=== PATIENT | female | born 1955 | race Caucasian/White ===

== ENCOUNTER 2018-07-28 08:18 | Observation (INO) ==
[2018-07-28] MEDS ORDERED: 0.9 % Sodium Chloride 1,000 ML ONE (08:36)
[2018-07-28] MEDS ORDERED: 0.9 % Sodium Chloride 1,000 ML IVC ONE ×2 (08:56→09:51)
[2018-07-28 09:06] LABS: Basophils # 0.1 K/mcL (0.0-0.2); Basophils % 0.4 %; Eosinophils # 0.1 K/mcL (0.0-0.6); Eosinophils % 0.6 %; Hematocrit 40.6 % (35.3-44.9); Hemoglobin 13.7 g/dL (11.5-15.4); Immature Granulocytes % 0.3 % (0-4); Lymphocytes # 1.6 K/mcL (0.6-4.6); Lymphocytes % 13.9 %; Mean Corpuscular HGB Conc 33.7 g/dL (31.6-35.5); Mean Corpuscular Hemoglobin 29.7 pg (28.0-33.3); Mean Corpuscular Volume 87.9 fL (83.0-100.0); Mean Platelet Volume 10.5 fL (9.4-12.4); Monocytes # 0.5 K/mcL (0.0-1.3); Monocytes % 4.3 %; Neutrophils # 9.2 K/mcL (1.6-8.9); Platelet Count 333 K/mcL (140-400); Red Blood Count 4.62 M/mcL (3.82-4.97); Red Cell Distribution Width 12.8 % (11.5-14.5); Segmented Neutrophils % 80.5 %
[2018-07-28] MEDS ORDERED: Isovue-370 500 ML INFUS..BTL IV ONE (09:12)
--- NOTE | 2018-07-28 09:14 | Emergency Department Note ---
Disposition Clinical Impression: Lower gastrointestinal hemorrhage Disposition: Admitted As Inpatient Condition: Fair Referrals: Jasmeet Garcia DO [Primary Care Provider] - Dwayne Gutierrez DO [Family Provider] - Forms: ED Satisfaction Letter Time of Disposition: 10:30 GI Bleed HPI - General Chief complaint: ED GI Bleed Stated complaint: "GI bleed" Time Seen by Provider: 07/28/18 08:23 Source: patient Limitations: no limitations Nursing Notes Reviewed: Yes Vital Signs Reviewed: Yes - History of Present Illness HPI Narrative: 63-year-old female recent colonoscopy last week by Dr. meneses, presents to the emergency department with concern for bright red blood per rectum. Patient states she has had 3 instances where she has defecated significants amount of blood in the toilet. Patient also reporting left lower quadrant abdominal pain as well. Reports no nausea or vomiting, fever. Reports she had a colonoscopy because of a screening. Reported that polyps were removed. Bright red blood. No urinary frequency or urgency. - Related Data Home Medications Medication Instructions Recorded Confirmed Lisinopril [Zestril] 10 mg PO DAILY 07/28/18 07/28/18 Polyethylene Glycol 3350 [MiraLAX 17 gm PO DAILY 07/28/18 07/28/18 bowel prep] amLODIPine [Norvasc] 5 mg PO DAILY 07/28/18 07/28/18 Allergies Allergy/AdvReac Type Severity Reaction Status Date / Time No Known Allergies Allergy Verified 07/22/18 07:29 All systems ED: reviewed and negative except as stated. Review of Systems: As Per HPI Constitutional: Denies: fever Cardiovascular: Denies: chest pain Respiratory: Denies: cough, dyspnea Gastrointestinal: Reports: abdominal pain, hematochezia. Denies: nausea, vomiting Genitourinary: Denies: urgency, dysuria, frequency Musculoskeletal: Denies: back pain Integumentary: Denies: rash Neurological: Denies: weakness Endocrine: Denies: fatigue Past Medical History - Past Medical History Medical history: Reports: hyperlipidemia, hypertension Surgical history: Reports: appendectomy Psychiatric history: Reports: no psych history - Social History Smoking Status: Never smoker Alcohol use: Reports: none Drug use: Reports: none Physical Exam - General Limitations: no limitations General appearance: alert, in no apparent distress - Head Head exam: normocephalic - Eye Eye exam: Present: EOMI - ENT ENT exam: normal oropharynx - Neck Neck exam: Present: trachea midline - Chest Chest inspection: Present: symmetric chest wall rise - Respiratory Respiratory exam: Present: normal lung sounds bilaterally. Absent: respiratory distress - Cardiovascular Cardiovascular exam: Present: normal rhythm, tachycardia, normal heart sounds - Abdominal Exam Abdominal exam: Present: soft, tenderness Abdominal tenderness: Present: LLQ - Rectal Exam Nurse Assistant present during exam: Yes Rectal exam: Present: bloody stool. Absent: hemorrhoids, mass - Extremities Exam Extremities exam: Present: normal capillary refill - Back Exam Back exam: Present: full ROM - Neurological Exam Neurological exam: Present: alert, oriented X3 - Psychiatric Psychiatric exam: Present: normal affect, normal mood - Skin Skin exam: Present: warm, dry, intact, normal color Course Vital Signs Temperature 98.0 F 07/28/18 08:19 Pulse Rate 123 07/28/18 08:19 Respiratory Rate 18 07/28/18 08:19 Blood Pressure 197/96 07/28/18 08:19 O2 Sat by Pulse Oximetry 97 07/28/18 08:19 Temperature 98.0 F 07/28/18 08:29 Pulse Rate 99 07/28/18 10:20 Respiratory Rate 16 07/28/18 10:20 Blood Pressure 155/85 07/28/18 10:20 O2 Sat by Pulse Oximetry 98 07/28/18 10:20 Oxygen Delivery Oxygen Delivery Room Air GI Bleed - [facility] Narrative Medical decision making narrative: 63-year-old female comes in with lower GI bleeding. Tachycardic with heart rate in the 120s. On physical exam, no evidence of active severe hemorrhage, but patient does have bright red blood per rectum. Hemoglobin was normal at 13.7. Patient was given 1 L of fluids here in the emergency department and her tachycardia improved to 107 bpm. The also given another bolus. We will obtain CT scan of the abdomen and pelvis as patient had left lower quadrant abdominal pain, in the setting of recent colonoscopy, there was concern for possible bowel perforation. This revealed blood in the rectum. Type and screen were obtained. Patient is not require blood at this time as hemoglobin is normal and she is asymptomatic. Patient made to the hospitalist for lower GI bleed.. Patient agrees with plan. Abdomen/Pelvis CT 07/28/18 09:12 IMPRESSION: 1. Findings compatible with lower GI bleed with hyperdensity within the rectum likely reflecting blood products. Could consider further evaluation with CTA, interventional radiology and/or nuclear medicine to better localize. 2. Otherwise, no CT evidence for acute intra-abdominal process, and no CT findings to suggest etiology of patient's left lower quadrant abdominal pain. D/ / Mac Donato / Mac Donato Interpreting Provider: Mac Donato Vital Signs Temperature 98.0 F 07/28/18 08:19 Pulse Rate 123 07/28/18 08:19 Respiratory Rate 18 07/28/18 08:19 Blood Pressure 197/96 07/28/18 08:19 O2 Sat by Pulse Oximetry 97 07/28/18 08:19 Temperature 98.0 F 07/28/18 08:29 Pulse Rate 99 07/28/18 10:20 Respiratory Rate 16 07/28/18 10:20 Blood Pressure 155/85 07/28/18 10:20 O2 Sat by Pulse Oximetry 98 07/28/18 10:20 Oxygen Delivery Oxygen Delivery Room Air - Lab Data Result diagrams: 07/28/18 08:48 07/28/18 08:48 Lab Results 07/28/18 07/28/18 07/28/18 Range/Units 08:48 08:48 08:48 WBC 11.5 H (4.3-11.1) K/mcL RBC 4.62 (3.82-4.97) M/mcL Hgb 13.7 (11.5-15.4) g/dL Hct 40.6 (35.3-44.9) % MCV 87.9 (83.0-100.0) fL MCH 29.7 (28.0-33.3) pg MCHC 33.7 (31.6-35.5) g/dL RDW 12.8 (11.5-14.5) % Plt Count 333 (140-400) K/mcL MPV 10.5 (9.4-12.4) fL Immature Gran % 0.3 (0-4) % Seg Neutrophils % 80.5 % Lymphocytes % 13.9 % Monocytes % 4.3 % Eosinophils % 0.6 % Basophils % 0.4 % Neutrophils # 9.2 H (1.6-8.9) K/mcL Lymphocytes # 1.6 (0.6-4.6) K/mcL Monocytes # 0.5 (0.0-1.3) K/mcL Eosinophils # 0.1 (0.0-0.6) K/mcL Basophils # 0.1 (0.0-0.2) K/mcL PT 11.7 (9.4-12.1) Seconds INR 1.0 APTT 30.4 (26.0-36.0) Seconds Sodium 137 (136-145) mEq/L Potassium 3.4 L (3.5-5.1) mEq/L Chloride 104 (98-107) mEq/L Carbon Dioxide 25 (23-29) mEq/L BUN 10 (8-23) mg/dL Creatinine 0.69 (0.60-1.20) mg/dL Est GFR ( Amer) > 60 (> 60) Est GFR (Non-Af Amer) > 60 (> 60) BUN/Creatinine Ratio 14 (6-26) Glucose 149 H (70-105) mg/dL Calculated Osmolality 286 (280-300) Lactic Acid (0.5-2.2) mmol/L Calcium 9.6 (8.6-10.3) mg/dL Total Bilirubin 0.5 (0.3-1.0) mg/dL AST 16 (13-39) Units/L ALT 13 (7-52) Units/L Alkaline Phosphatase 103 (34-104) Units/L Serum Total Protein 7.2 (6.4-8.9) g/dL Albumin 4.7 (3.5-5.7) g/dL Globulin 2.5 (2.4-3.5) g/dL Albumin/Globulin Ratio 1.9 (1.1-2.2) Lipase 8 L (11-82) Units/L Blood Type Antibody Screen 07/28/18 07/28/18 Range/Units 08:48 09:46 WBC (4.3-11.1) K/mcL RBC (3.82-4.97) M/mcL Hgb (11.5-15.4) g/dL Hct (35.3-44.9) % MCV (83.0-100.0) fL MCH (28.0-33.3) pg MCHC (31.6-35.5) g/dL RDW (11.5-14.5) % Plt Count (140-400) K/mcL MPV (9.4-12.4) fL Immature Gran % (0-4) % Seg Neutrophils % % Lymphocytes % % Monocytes % % Eosinophils % % Basophils % % Neutrophils # (1.6-8.9) K/mcL Lymphocytes # (0.6-4.6) K/mcL Monocytes # (0.0-1.3) K/mcL Eosinophils # (0.0-0.6) K/mcL Basophils # (0.0-0.2) K/mcL PT (9.4-12.1) Seconds INR APTT (26.0-36.0) Seconds Sodium (136-145) mEq/L Potassium (3.5-5.1) mEq/L Chloride (98-107) mEq/L Carbon Dioxide (23-29) mEq/L BUN (8-23) mg/dL Creatinine (0.60-1.20) mg/dL Est GFR ( Amer) (> 60) Est GFR (Non-Af Amer) (> 60) BUN/Creatinine Ratio (6-26) Glucose (70-105) mg/dL Calculated Osmolality (280-300) Lactic Acid 1.3 (0.5-2.2) mmol/L Calcium (8.6-10.3) mg/dL Total Bilirubin (0.3-1.0) mg/dL AST (13-39) Units/L ALT (7-52) Units/L Alkaline Phosphatase (34-104) Units/L Serum Total Protein (6.4-8.9) g/dL Albumin (3.5-5.7) g/dL Globulin (2.4-3.5) g/dL Albumin/Globulin Ratio (1.1-2.2) Lipase (11-82) Units/L Blood Type A POSITIVE Antibody Screen NEGATIVE - EKG Data EKG attestation: Yes I reviewed and interpreted this EKG. EKG results narrative: 8:32 Heart rate 170 bpm, VT interval 144 ms, QRS duration 94 ms, QT 313 ms, QTC 437 ms, normal axis. Sinus tachycardia. No evidence of any ischemic ST changes.
[2018-07-28 09:15] LABS: Prothrombin Time 11.7 Seconds (9.4-12.1)
[2018-07-28 09:20] LABS: Activated Partial Thrombo Time 30.4 Seconds (26.0-36.0)
[2018-07-28 09:31] LABS: Alanine Aminotransferase 13 Units/L (7-52); Albumin 4.7 g/dL (3.5-5.7); Albumin/Globulin Ratio 1.9 (1.1-2.2); Alkaline Phosphatase 103 Units/L (34-104); Aspartate Amino Transferase 16 Units/L (13-39); BUN/Creatinine Ratio 14 (6-26); Bilirubin,Total 0.5 mg/dL (0.3-1.0); Blood Urea Nitrogen 10 mg/dL (8-23); Calcium 9.6 mg/dL (8.6-10.3); Carbon Dioxide 25 mEq/L (23-29); Chloride 104 mEq/L (98-107); Globulin 2.5 g/dL (2.4-3.5); Glucose 149 mg/dL (70-105); Lipase 8 Units/L (11-82); Osmolality,Calculated 286 (280-300); Potassium 3.4 mEq/L (3.5-5.1); Sodium 137 mEq/L (136-145); Total Protein 7.2 g/dL (6.4-8.9); eGFR For Non-African Americans > 60 (> 60)
[2018-07-28] MEDS ORDERED: Naloxone 0.4 MG/ML INJ IVP PRN (10:35)
--- NOTE | 2018-07-28 10:42 | Emergency Department Note ---
Disposition Clinical Impression: Lower gastrointestinal hemorrhage Disposition: Admitted As Inpatient Condition: Fair General Adult HPI - General Chief complaint: ED GI Bleed Stated complaint: "GI bleed" Time Seen by Provider: 07/28/18 08:23 Source: patient Limitations: no limitations - History of Present Illness Pain Scale: 0 - Related Data Home Medications Medication Instructions Recorded Confirmed Lisinopril [Zestril] 10 mg PO DAILY 07/28/18 07/28/18 Polyethylene Glycol 3350 [MiraLAX 17 gm PO DAILY 07/28/18 07/28/18 bowel prep] amLODIPine [Norvasc] 5 mg PO DAILY 07/28/18 07/28/18 Allergies Allergy/AdvReac Type Severity Reaction Status Date / Time No Known Allergies Allergy Verified 07/22/18 07:29 Constitutional: Denies: fever Cardiovascular: Denies: chest pain Respiratory: Denies: cough, dyspnea Gastrointestinal: Reports: abdominal pain, hematochezia. Denies: nausea, vomiting Genitourinary: Denies: urgency, dysuria, frequency Musculoskeletal: Denies: back pain Integumentary: Denies: rash Neurological: Denies: weakness Endocrine: Denies: fatigue Past Medical History - Past Medical History Medical history: Reports: hyperlipidemia, hypertension Surgical history: Reports: appendectomy Psychiatric history: Reports: no psych history - Social History Smoking Status: Never smoker Alcohol use: Reports: none Drug use: Reports: none Physical Exam - General Limitations: no limitations General appearance: alert, in no apparent distress Course Vital Signs Temperature 98.0 F 07/28/18 08:19 Pulse Rate 123 07/28/18 08:19 Respiratory Rate 18 07/28/18 08:19 Blood Pressure 197/96 07/28/18 08:19 O2 Sat by Pulse Oximetry 97 07/28/18 08:19 Temperature 98.0 F 07/28/18 08:29 Pulse Rate 99 07/28/18 10:20 Respiratory Rate 16 07/28/18 10:20 Blood Pressure 155/85 07/28/18 10:20 O2 Sat by Pulse Oximetry 98 07/28/18 10:20 Oxygen Delivery Oxygen Delivery Room Air Medical Decision Making - Lab Data Result diagrams: 07/28/18 08:48 07/28/18 08:48 Lab Results 07/28/18 07/28/18 07/28/18 Range/Units 08:48 08:48 08:48 WBC 11.5 H (4.3-11.1) K/mcL RBC 4.62 (3.82-4.97) M/mcL Hgb 13.7 (11.5-15.4) g/dL Hct 40.6 (35.3-44.9) % MCV 87.9 (83.0-100.0) fL MCH 29.7 (28.0-33.3) pg MCHC 33.7 (31.6-35.5) g/dL RDW 12.8 (11.5-14.5) % Plt Count 333 (140-400) K/mcL MPV 10.5 (9.4-12.4) fL Immature Gran % 0.3 (0-4) % Seg Neutrophils % 80.5 % Lymphocytes % 13.9 % Monocytes % 4.3 % Eosinophils % 0.6 % Basophils % 0.4 % Neutrophils # 9.2 H (1.6-8.9) K/mcL Lymphocytes # 1.6 (0.6-4.6) K/mcL Monocytes # 0.5 (0.0-1.3) K/mcL Eosinophils # 0.1 (0.0-0.6) K/mcL Basophils # 0.1 (0.0-0.2) K/mcL PT 11.7 (9.4-12.1) Seconds INR 1.0 APTT 30.4 (26.0-36.0) Seconds Sodium 137 (136-145) mEq/L Potassium 3.4 L (3.5-5.1) mEq/L Chloride 104 (98-107) mEq/L Carbon Dioxide 25 (23-29) mEq/L BUN 10 (8-23) mg/dL Creatinine 0.69 (0.60-1.20) mg/dL Est GFR ( Amer) > 60 (> 60) Est GFR (Non-Af Amer) > 60 (> 60) BUN/Creatinine Ratio 14 (6-26) Glucose 149 H (70-105) mg/dL Calculated Osmolality 286 (280-300) Lactic Acid (0.5-2.2) mmol/L Calcium 9.6 (8.6-10.3) mg/dL Total Bilirubin 0.5 (0.3-1.0) mg/dL AST 16 (13-39) Units/L ALT 13 (7-52) Units/L Alkaline Phosphatase 103 (34-104) Units/L Serum Total Protein 7.2 (6.4-8.9) g/dL Albumin 4.7 (3.5-5.7) g/dL Globulin 2.5 (2.4-3.5) g/dL Albumin/Globulin Ratio 1.9 (1.1-2.2) Lipase 8 L (11-82) Units/L Blood Type Antibody Screen 07/28/18 07/28/18 Range/Units 08:48 09:46 WBC (4.3-11.1) K/mcL RBC (3.82-4.97) M/mcL Hgb (11.5-15.4) g/dL Hct (35.3-44.9) % MCV (83.0-100.0) fL MCH (28.0-33.3) pg MCHC (31.6-35.5) g/dL RDW (11.5-14.5) % Plt Count (140-400) K/mcL MPV (9.4-12.4) fL Immature Gran % (0-4) % Seg Neutrophils % % Lymphocytes % % Monocytes % % Eosinophils % % Basophils % % Neutrophils # (1.6-8.9) K/mcL Lymphocytes # (0.6-4.6) K/mcL Monocytes # (0.0-1.3) K/mcL Eosinophils # (0.0-0.6) K/mcL Basophils # (0.0-0.2) K/mcL PT (9.4-12.1) Seconds INR APTT (26.0-36.0) Seconds Sodium (136-145) mEq/L Potassium (3.5-5.1) mEq/L Chloride (98-107) mEq/L Carbon Dioxide (23-29) mEq/L BUN (8-23) mg/dL Creatinine (0.60-1.20) mg/dL Est GFR ( Amer) (> 60) Est GFR (Non-Af Amer) (> 60) BUN/Creatinine Ratio (6-26) Glucose (70-105) mg/dL Calculated Osmolality (280-300) Lactic Acid 1.3 (0.5-2.2) mmol/L Calcium (8.6-10.3) mg/dL Total Bilirubin (0.3-1.0) mg/dL AST (13-39) Units/L ALT (7-52) Units/L Alkaline Phosphatase (34-104) Units/L Serum Total Protein (6.4-8.9) g/dL Albumin (3.5-5.7) g/dL Globulin (2.4-3.5) g/dL Albumin/Globulin Ratio (1.1-2.2) Lipase (11-82) Units/L Blood Type A POSITIVE Antibody Screen NEGATIVE Attestation Statement - Attestation Attestation: I examined this patient and my medical decision-making was reviewed with the Resident Physician. I agree with the documented findings, disposition and treatment plan as described except to the extent set forth below. 63 year old fmale presents to the Ed with copmlaints of rectal bleeding and is hemoocult postiive with tachycardia scondary to a colonoscopy per Dr. Velarde last week and is not currenlty anticoaugulated. Paitnet is not anemic and is responding to IVF therapy and has impvored her heart rate to 103 from 120s. Patient ABC confirms rectal vault blood collection but not perforation or periotnaeal signs on exam. [facility]
--- NOTE | 2018-07-28 10:44 | Internal Med History&Physical ---
Date of Encounter: 07/28/18 Time of Encounter: 10:42 Internal Medicine - H&P: HPI Chief complaint: Blood in stools Admitted From: Emergency Dept Plans for Post Hospital Care: Home History of present illness: Ms. Carrasquillo is a 63 year old female wo recently had a screening colonoscopy last saturday - comes in with passing blood and clots in stool since last night. She states she had about half a cup of blood along with clots thatshe started passing last night. Denies dizziness / SOB/ Chest pain etc. She states she was doingwell immidiately after colonoscopy and had no blood for first few days. No fevers/ chills Past Med Surg Social Fam HX - Past Medical History Medical history: hyperlipidemia, hypertension Psychiatric history: no psych history - Past Surgical History Surgical History: appendectomy - Social History Smoking Status: Never smoker Alcohol use: none Drug use: none - Additional Family History Additional family history: No significant family Hx of early Gi malignancy Internal Medicine - H&P: Meds Lisinopril [Zestril] 10 mg PO DAILY 07/28/18 [History] Polyethylene Glycol 3350 [MiraLAX bowel prep] 17 gm PO DAILY 07/28/18 [History] amLODIPine [Norvasc] 5 mg PO DAILY 07/28/18 [History] 3 Allergy/AdvReac Type Severity Reaction Status Date / Time No Known Allergies Allergy Verified 07/22/18 07:29 All Systems PM: A 10-system review of systems was performed and is negative for pertinent findings except as documented above in the HPI. - Constitutional Vitals: Temp Pulse Resp BP Pulse Ox 98.0 F 99 16 155/85 98 07/28/18 08:29 07/28/18 10:20 07/28/18 10:20 07/28/18 10:20 07/28/18 10:20 General appearance: Present: cooperative, A&O X 3, pleasant, no acute distress Exam: As above - Head Head exam: Present: atraumatic, normocephalic - Eye Eye exam: Present: PERRL, conjuntiva pink, sclera anicteric Pupils: Present: PERRL - Respiratory Respiratory exam: Present: CTAB. Absent: accessory muscle use, rales, rhonchi, wheezes - Cardiovascular Cardiovascular exam: Present: RRR, +S1, +S2. Absent: diastolic murmur, gallop, rubs, systolic murmur - GI/Abdominal GI/Abdominal exam: Present: normal bowel sounds, soft, no peritoneal signs. Absent: distended, tenderness - Extremities Exam Extremities exam: Present: warm, radial pulses palpable and symmetrical. Absent : calf tenderness, cyanotic, pedal edema - Neurological Exam Neurological exam: Present: CN II-XII intact, oriented X3, no focal deficits. Absent: pronater drift, facial droop, speech deficit Internal Med - H&P Results - Labs CBC & Chem 7: 07/28/18 08:48 07/28/18 08:48 - Diagnostic Studies CT scan - abdomen Status: image reviewed by me (Some evidence of Blood in rectum. ) - Assessment and plan (1) Lower gastrointestinal hemorrhage Current Visit: Yes Status: Acute Assessment and plan: Recent colonoscopy with polyps removed from desc colon and rectum- Path report reviewed- Tubular adenoma with no malignant features and hyperplastic polyps in rectum WIll place on observation Likely source is LGIB from recent polypectomy Serial H&H Hgb is around 11- will trend cautiously Spoke to Dr Velarde- he will see patient today and follow along Could be on a diet unless significant increase in bleeding pt is not coagulopathic . not onASA (2) Benign essential HTN Current Visit: Yes Status: Acute Assessment and plan: Resume home meds. monitor closely - Time Spent With Patient Total time spent is greater than 50% in coordination of care (as documented) at patient's floor/unit and/or counseling patient: Greater than 35 minutes
[2018-07-28 12:03] LABS: Basophils % 0.3 %; Eosinophils % 0.1 %; Hematocrit 35.7 % (35.3-44.9); Immature Granulocytes % 0.2 % (0-4); Lymphocytes # 1.2 K/mcL (0.6-4.6); Lymphocytes % 11.4 %; Mean Corpuscular HGB Conc 32.8 g/dL (31.6-35.5); Mean Corpuscular Hemoglobin 28.7 pg (28.0-33.3); Mean Corpuscular Volume 87.5 fL (83.0-100.0); Mean Platelet Volume 10.6 fL (9.4-12.4); Monocytes # 0.3 K/mcL (0.0-1.3); Platelet Count 272 K/mcL (140-400); Red Blood Count 4.08 M/mcL (3.82-4.97); Red Cell Distribution Width 12.9 % (11.5-14.5)
[2018-07-28 12:08] LABS: Hemoglobin 11.7 g/dL (11.5-15.4)
--- NOTE | 2018-07-28 12:49 | General Surgery Consult Note ---
Date of Encounter: 07/28/18 Time of Encounter: 12:00 History of Present Illness Consult date: 07/28/18 Requesting physician: Beatriz Ballard History of present illness: 63-year-old admitted after presenting to the emergency department with new onset bright red, painless rectal bleeding. The patient is status post colonoscopy with removal of multiple polyps, 07/22/18. 2 polyps were rectal and found to be hyperplastic; a third polyp was a low-grade tubular adenoma located in the descending colon. All polyps were removed without difficulty. The patient tolerated the colonoscopy well and had no postprocedural complaints until this morning. On presentation to the emergency department the patient was in no acute distress, white count was 10.6, initial hemoglobin 13.7 with repeat approximately 3 hours later at 11.7. Hematocrit 35.7. Differential notable for neutrophils at 9.0. Electrolytes notable for potassium of 3.4; BUN 10, creatinine 0.69. Past medical history: Hyperlipidemia, hypertension Surgical history: Hysterectomy, appendectomy in the remote past; colonoscopy as described, 07/22/18. Allergies: No known drug allergies Medications: Ephraim-3 fish oil 1000 mg by mouth daily Multivitamins (multi-for her 50 plus) 52095 micrograms by mouth daily amlodipine 5 mg by mouth daily Social history: Patient is , lives at home with her spouse; she does not smoke, denies any alcohol or illicit drug use Family history: Mother with history of breast cancer and heart disease ; father with history of heart disease Examination reveals a healthy-appearing age-appropriate woman in no acute distress The patient is afebrile at 97.7, pulse 98-99; respirations 16 and unlabored; blood pressure 162/74. SPO2 on room air 98% Skin: Warm, no obvious jaundice Lungs: Clear Cardiac: Regular rate, no appreciable murmurs Abdomen: Soft, nontender. Strategies: No obvious clubbing, cyanosis, or edema. Oppression: 63-year-old female proximally 6 days status post colonoscopy with polypectomy. Patient presented to the emergency department this morning with new onset rectal bleeding. Hemoglobin on presentation 13.7; repeat approximately 3 hours later 11.7; possibly due to fluid administered in the ER Plan: Serial H&H's Repeat colonoscopy if there is persisting evidence of rectal bleeding/ GI bleed This is been discussed with the patient and her who was in attendance. Clear liquids for today pending further evaluation of the patient. Past Med Surg Social Fam HX - Past Medical History Medical history: hyperlipidemia, hypertension Psychiatric history: no psych history - Past Surgical History Surgical History: appendectomy, hysterectomy - Social History Smoking Status: Never smoker Smokeless Tobacco Status: No Alcohol use: none Drug use: none Medications and Allergies Lisinopril [Zestril] 10 mg PO DAILY 07/28/18 [History] Polyethylene Glycol 3350 [MiraLAX bowel prep] 17 gm PO DAILY 07/28/18 [History] amLODIPine [Norvasc] 5 mg PO DAILY 07/28/18 [History] 3 Allergy/AdvReac Type Severity Reaction Status Date / Time No Known Allergies Allergy Verified 07/22/18 07:29 Review of Systems All systems PM: The remainder of the systems were reviewed and are negative General Surgery Exam Initial Vital Signs Temp Pulse Resp BP Pulse Ox 98.0 F 123 18 197/96 97 07/28/18 08:19 07/28/18 08:19 07/28/18 08:19 07/28/18 08:19 07/28/18 08:19 Exam Initial Vital Signs Temp Pulse Resp BP Pulse Ox 98.0 F 123 18 197/96 97 07/28/18 08:19 07/28/18 08:19 07/28/18 08:19 07/28/18 08:19 07/28/18 08:19 Results - Labs 07/28/18 11:20 07/28/18 08:48 Abnormal lab results Neutrophils # 9.0 K/mcL (1.6-8.9) H 07/28/18 11:20 Potassium 3.4 mEq/L (3.5-5.1) L 07/28/18 08:48 Glucose 149 mg/dL (70-105) H 07/28/18 08:48 Lipase 8 Units/L (11-82) L 07/28/18 08:48 All other labs normal. Consult Discharge Plan - Plan Referrals: Jasmeet Garcia DO [Primary Care Provider] - Dwayne Gutierrez DO [Family Provider] -
--- NOTE | 2018-07-28 18:31 | Electrocardiograph Report ---
[facility] Test Date: 2018-07-28 Pat Name: Elda Carrasquillo Department: EXAM1 Room: 2A45 Gender: F Abrasive Worker: : 1955 Requested By: Adriano Cárdenas Order Number: [id number] Reading MD: Akin Aparicio Measurements Intervals [place] Rate: 117 P: 69 [place]: 144 QRS: 51 QRSD: 94 T: 57 QT: 313 QTc: 437 Interpretive Statements Sinus tachycardia Ventricular premature complex Probable left atrial enlargement Electronically Signed On 07-28-2018 18:29:36 EDT by Akin Aparicio
[2018-07-28 19:50] LABS: Basophils % 0.4 %; Eosinophils % 0.4 %; Hematocrit 30.3 % (35.3-44.9); Immature Granulocytes % 0.3 % (0-4); Lymphocytes # 1.9 K/mcL (0.6-4.6); Lymphocytes % 25.8 %; Mean Corpuscular HGB Conc 33.3 g/dL (31.6-35.5); Mean Corpuscular Hemoglobin 29.5 pg (28.0-33.3); Mean Corpuscular Volume 88.6 fL (83.0-100.0); Mean Platelet Volume 10.6 fL (9.4-12.4); Monocytes # 0.3 K/mcL (0.0-1.3); Monocytes % 4.4 %; Neutrophils # 5.2 K/mcL (1.6-8.9); Platelet Count 273 K/mcL (140-400); Red Blood Count 3.42 M/mcL (3.82-4.97); Segmented Neutrophils % 68.7 %
[2018-07-28 19:57] LABS: Hemoglobin 10.1 g/dL (11.5-15.4)
[2018-07-29 05:21] LABS: BUN/Creatinine Ratio 17 (6-26); Blood Urea Nitrogen 10 mg/dL (8-23); Calcium 8.9 mg/dL (8.6-10.3); Carbon Dioxide 23 mEq/L (23-29); Chloride 108 mEq/L (98-107); Glucose 113 mg/dL (70-105); Osmolality,Calculated 284 (280-300); Potassium 3.8 mEq/L (3.5-5.1); Sodium 137 mEq/L (136-145); eGFR For Non-African Americans > 60 (> 60)
[2018-07-29 06:19] LABS: Basophils % 0.3 %; Eosinophils # 0.1 K/mcL (0.0-0.6); Eosinophils % 0.7 %; Hematocrit 31.2 % (35.3-44.9); Hemoglobin 10.3 g/dL (11.5-15.4); Immature Granulocytes % 0.4 % (0-4); Lymphocytes # 1.8 K/mcL (0.6-4.6); Lymphocytes % 25.1 %; Mean Corpuscular Hemoglobin 29.3 pg (28.0-33.3); Mean Corpuscular Volume 88.9 fL (83.0-100.0); Mean Platelet Volume 10.5 fL (9.4-12.4); Monocytes # 0.4 K/mcL (0.0-1.3); Neutrophils # 4.9 K/mcL (1.6-8.9); Platelet Count 272 K/mcL (140-400); Red Blood Count 3.51 M/mcL (3.82-4.97); Red Cell Distribution Width 13.2 % (11.5-14.5); Segmented Neutrophils % 67.5 %
[2018-07-29] MEDS ORDERED: amLODIPine 5 MG TABLET PO SCH (09:00)
[2018-07-29 11:05] VITALS: BP 119/74
--- NOTE | 2018-07-29 12:35 | General Surgery Progress Note ---
Date of Encounter: 07/29/18 Time of Encounter: 12:30 Subjective Narrative: General Surgery - Patient without complaints; patient describes passage of clots in her stool last evening but none this morning. Patient remains afebrile, hemodynamically stable - 98.2; pulse 77 and 96, respirations 16 and unlabored, blood pressure 119/74 Abdomen: Soft, nontender. H&H - 10.1 / 30.3 approximately 1930 last evening; 10.3 and 31.2 this morning. Platelet count remains within normal limits at 272,000; Electrolytes demonstrate correction of hypokalemia at 3.8, BUN 10, creatinine 0.60. Impression: 63-year-old female 7 days status post colonoscopy with polypectomy with evidence of post-polypectomy hemorrhage and resultant anemia. The bleeding appears to have stabilized/stopped. The patient's voicing no complaints. It does not appear that any further intervention is required at this time. Recommendations: Discharge home Follow-up my office on 08/01/18. Patient may call the office on , 07/31 technique this appointment as he office will not be open until then Patient has been instructed to contact me directly should any evidence recurrent GI hemorrage develop. Objective Vital Signs - Last 8 Hours Temp Pulse Resp BP Pulse Ox 07/29/18 11:22 98 07/29/18 11:04 98.2 F 96 16 119/74 98 07/29/18 06:38 97.9 F 77 16 126/71 97 07/29/18 05:56 98.7 F 86 16 163/73 96 Intake and Output 07/28/18 07/29/18 07/29/18 23:59 07:59 15:59 Intake Total 240 / 240 1210 / 1210 Balance 240 / 240 1210 / 1210 Intake: IV Fluids 1000 / 1000 Oral 240 / 240 210 / 210 Other: Meal Dinner Breakfast Percent of Meal Consumed 50% 80% # Voids 1 Weight 77 kg Patient Weight 07/29/18 23:59 Weight 77 kg - Labs 07/29/18 05:58 07/29/18 04:09 Diabetes panel 07/29/18 Range/Units 04:09 Sodium 137 (136-145) mEq/L Potassium 3.8 (3.5-5.1) mEq/L Chloride 108 H (98-107) mEq/L Carbon Dioxide 23 (23-29) mEq/L BUN 10 (8-23) mg/dL Creatinine 0.60 (0.60-1.20) mg/dL Glucose 113 H (70-105) mg/dL Calcium 8.9 (8.6-10.3) mg/dL Calcium panel 07/29/18 Range/Units 04:09 Calcium 8.9 (8.6-10.3) mg/dL Pituitary panel 07/29/18 Range/Units 04:09 Sodium 137 (136-145) mEq/L Potassium 3.8 (3.5-5.1) mEq/L Chloride 108 H (98-107) mEq/L Carbon Dioxide 23 (23-29) mEq/L BUN 10 (8-23) mg/dL Creatinine 0.60 (0.60-1.20) mg/dL Glucose 113 H (70-105) mg/dL Calcium 8.9 (8.6-10.3) mg/dL Adrenal panel 07/29/18 Range/Units 04:09 Sodium 137 (136-145) mEq/L Potassium 3.8 (3.5-5.1) mEq/L Chloride 108 H (98-107) mEq/L Carbon Dioxide 23 (23-29) mEq/L BUN 10 (8-23) mg/dL Creatinine 0.60 (0.60-1.20) mg/dL Glucose 113 H (70-105) mg/dL Calcium 8.9 (8.6-10.3) mg/dL Consult Discharge Plan - Plan Referrals: Dwayne Gutierrez DO [Family Provider] - Jasmeet Garcia DO [Primary Care Provider] -
--- NOTE | 2018-07-29 12:49 | Discharge Summary ---
- NOTES TO OUTPATIENT PROVIDER Notes to Outpatient Provider: Patient was admitted for bright red blood per rectum in the setting of recent colonoscopy and polypectomy. Hb dropped as low as 10.1 from 13 but was stable around that figure. She also reported improvement in her symptoms. She had remained hemodynamically stable throughout her stay and discharge is stable condition on 07/29 with surgery follow-up on . She was advised to call the surgeon directly should any evidence of recurrent GI bleed develop. Orders not resulted at time of discharge: Pending orders 07/29/18 18:00 Hemoglobin and Hematocrit [HEME] Q12H Date of Encounter: 07/29/18 Time of Encounter: 10:30 - Discharge Diagnosis (1) Lower gastrointestinal hemorrhage Priority: Primary Status: Acute (2) Benign essential HTN Priority: Secondary Status: Acute Hospital course: Ms. Carrasquillo is a 63 year old female was admitted for bright red blood per rectum in the setting of recent colonoscopy and polypectomy. Hb dropped as low as 10.1 from 13 but was stable around that figure. She also reported improvement in her symptoms. She had remained hemodynamically stable throughout her stay and discharge is stable condition on 07/29 with surgery follow-up on 08/01. She was advised to call the surgeon directly should any evidence of recurrent GI bleed develop. Discharge discussed with: patient, nurse - Time Spent with Patient Total time spent providing and/or coordinating discharge services: Greater than 30 minutes - Discharge Medications Home Medications: Lisinopril [Zestril] 10 mg PO DAILY 07/28/18 [History] amLODIPine [Norvasc] 5 mg PO DAILY 07/28/18 [History] Allergies/Adverse Reactions: 3 Allergy/AdvReac Type Severity Reaction Status Date / Time No Known Allergies Allergy Verified 07/22/18 07:29 Date of admission: 07/28/18 10:34 Primary care physician: Jasmeet Garcia DO Consults: 07/28/18 10:39 Consult to Physician [CONS] Routine Consulting Provider: Asad Velarde Reason for Consult: LGIB . recent colonoscopy Time Notified: 10:40 Call Completed: Yes - Constitutional Vitals: Temp Pulse Resp BP Pulse Ox 98.2 F 96 16 119/74 98 07/29/18 11:04 07/29/18 11:04 07/29/18 11:04 07/29/18 11:04 07/29/18 11:22 General appearance: Present: cooperative, A&O X 3, pleasant, no acute distress Exam: General: Alert and oriented, not in acute distress. HEENT: no pallor Cardiovascular:Normal S1 & S2, No JVD. Pulse regular. Lungs: clear to auscultation, no wheezes/rales Abdomen:Soft, non-tender, no rigidity. - Patient Status Disposition: Home, Self-Care Condition: Fair Overall status at discharge: patient is progressing back to baseline - Discharge Instructions Instructions: Chronic Hypertension (DC) Follow Up With: Asad Velarde MD [Non-Partnered Physician] - 08/01/18 2:50 pm Dwayne Gutierrez DO [Family Provider] - Jasmeet Garcia DO [Primary Care Provider] - - Diet and Activity Activity: resume usual activities as tolerated Diet: advance to your usual diet
== END 2018-07-29 14:09 | disposition home or self-care (01) ==
LOC: EMEROOARM 08:18 → 2ANU 08:18 → SUATTDRO 10:34 → 2ANU 10:50
PROVIDERS: ADMIT Internal Medicine; ATTEND Internal Medicine